=== PATIENT | male | born 1935 | race African-American/Black ===

== ENCOUNTER 2018-03-31 09:29 | Inpatient (IN) | payer OTHER ==
[~2018-03-31] VITALS: Ht 182.9 cm; Wt 77.8 kg
[2018-03-31 10:49] LABS: BASOPHIL % 0.4 % (0-2); PLATELET COUNT 203 x10^3mcL (130-400); RED CELL DISTRIBUTION WIDTH 12.9 % (11.5-14.5)
[2018-03-31 10:52] LABS: CALCIUM 8.8 mg/dL (8.5-10.1); CARBON DIOXIDE 31.3 mmol/L (21-32); CHLORIDE SERUM 105 mmol/L (98-107); CREATININE SERUM 1.7 mg/dL (0.7-1.3); GLUCOSE SERUM 87 mg/dL (74-106); POTASSIUM SERUM 4.2 mmol/L (3.5-5.1); SODIUM SERUM 142 mmol/L (136-145)
[2018-03-31 11:02] LABS: microscopic required? NO
[2018-03-31 11:03] LABS: ALKALINE PHOSPHATASE 103 U/L (46-116); ALT/SGPT 17 U/L (16-63); AMYLASE 59 U/L (25-115); AST/SGOT 19 U/L (15-37); BILIRUBIN TOTAL 0.55 mg/dL (0.20-1.00); CHOLESTEROL 171 mg/dL (<200); HDL CHOLESTEROL 49 mg/dL (40-60); LIPASE 112 IU/L (73-393); MAGNESIUM 2.4 mg/dL (1.8-2.4); T4(THYROXINE) 5.8 ug/dL (4.7-13.3)
[2018-03-31 11:04] LABS: ALBUMIN 3.3 g/dL (3.4-5.0)
[2018-03-31 11:19] LABS: UA SPECIFIC GRAVITY 1.015 (1.005-1.035); urine erythrocyte NEGATIVE (NEGATIVE)
[2018-03-31 11:25] LABS: AMPHETAMINE QUAL UR NONE DETECTED (See below)
[2018-03-31] MEDS ORDERED: TRAVATAN Z5 ML OU (12:46)
[2018-03-31] MEDS ORDERED: NAMENDA10 M2 PO (12:47)
[2018-03-31 13:54] VITALS: BP 184/93
[2018-03-31 15:00] VITALS: BP 145/84
[2018-03-31 15:04] VITALS: Ht 182.9 cm; Wt 77.8 kg
[2018-03-31 21:48] VITALS: BP 162/85
[2018-03-31 23:26] VITALS: BP 126/96
[2018-04-01 05:18] VITALS: BP 120/67
[2018-04-01 06:57] LABS: BASOPHIL % 0.7 % (0-2); PLATELET COUNT 197 x10^3mcL (130-400); RED CELL DISTRIBUTION WIDTH 12.9 % (11.5-14.5)
[2018-04-01 07:21] LABS: CALCIUM 8.8 mg/dL (8.5-10.1); CARBON DIOXIDE 25.3 mmol/L (21-32); CHLORIDE SERUM 107 mmol/L (98-107); CREATININE SERUM 1.6 mg/dL (0.7-1.3); GLUCOSE SERUM 85 mg/dL (74-106); POTASSIUM SERUM 4.2 mmol/L (3.5-5.1); SODIUM SERUM 141 mmol/L (136-145)
[2018-04-01 08:25] VITALS: BP 120/60
[2018-04-01 13:41] VITALS: BP 113/69
[2018-04-01 17:20] VITALS: BP 119/61
[2018-04-02 02:25] VITALS: BP 100/55
[2018-04-02 05:28] LABS: BASOPHIL % 0.5 % (0-2); PLATELET COUNT 190 x10^3mcL (130-400); RED CELL DISTRIBUTION WIDTH 13.4 % (11.5-14.5)
[2018-04-02 05:30] VITALS: BP 112/56
[2018-04-02 05:41] LABS: CARBON DIOXIDE 28.4 mmol/L (21-32); CHLORIDE SERUM 110 mmol/L (98-107); CREATININE SERUM 1.7 mg/dL (0.7-1.3); GLUCOSE SERUM 86 mg/dL (74-106); MAGNESIUM 2.3 mg/dL (1.8-2.4); PHOSPHOROUS 3.1 mg/dL (2.5-4.9); POTASSIUM SERUM 4.3 mmol/L (3.5-5.1); SODIUM SERUM 147 mmol/L (136-145)
[2018-04-02 10:05] VITALS: BP 115/69
[2018-04-02 13:36] VITALS: BP 114/51
[2018-04-02 18:13] VITALS: BP 155/77
[2018-04-02 21:03] VITALS: BP 113/56
[2018-04-03 05:41] VITALS: BP 153/78
[2018-04-03 06:04] LABS: BASOPHIL % 0.5 % (0-2); PLATELET COUNT 213 x10^3mcL (130-400)
[2018-04-03 06:56] LABS: CALCIUM 8.5 mg/dL (8.5-10.1); CARBON DIOXIDE 26.8 mmol/L (21-32); CHLORIDE SERUM 107 mmol/L (98-107); CREATININE SERUM 1.7 mg/dL (0.7-1.3); GLUCOSE SERUM 90 mg/dL (74-106); MAGNESIUM 2.3 mg/dL (1.8-2.4); POTASSIUM SERUM 3.7 mmol/L (3.5-5.1); SODIUM SERUM 142 mmol/L (136-145)
[2018-04-03 08:24] VITALS: BP 152/73
[2018-04-03 13:10] VITALS: BP 140/70
[2018-04-03 17:01] VITALS: BP 145/63
[2018-04-03 20:26] VITALS: BP 142/76
[2018-04-04 05:46] VITALS: BP 154/78
[2018-04-04 10:50] VITALS: BP 117/57
[2018-04-04 14:59] VITALS: BP 128/62
[2018-04-04 20:23] VITALS: BP 148/78
[2018-04-05] VITALS (7 sets, daily range): BP systolic 97–150; BP diastolic 48–77
[2018-04-05 06:55] LABS: BASOPHIL % 0.6 % (0-2); PLATELET COUNT 212 x10^3mcL (130-400); RED CELL DISTRIBUTION WIDTH 12.9 % (11.5-14.5)
[2018-04-05 07:13] LABS: CARBON DIOXIDE 25.6 mmol/L (21-32); CHLORIDE SERUM 107 mmol/L (98-107); CREATININE SERUM 1.7 mg/dL (0.7-1.3); GLUCOSE SERUM 85 mg/dL (74-106); POTASSIUM SERUM 3.9 mmol/L (3.5-5.1); SODIUM SERUM 142 mmol/L (136-145)
[2018-04-06 05:44] VITALS: BP 101/51
[2018-04-06 08:42] VITALS: BP 121/66
[2018-04-06] MEDS ORDERED: XARELTO20 M1 PO (11:08)
[2018-04-06] MEDS ORDERED: XARELTO15 M1 PO (12:11)
[2018-04-06] MEDS ORDERED: ECO81 PO (12:51)
[2018-04-06] MEDS ORDERED: LIPI10 PO (12:51)
[2018-04-06] MEDS ORDERED: METOPROLOL TART25 M1 PO (12:51)
[2018-04-06 13:07] VITALS: BP 129/68
== END 2018-04-06 14:45 | DRG 56 ==
LOC: ED 09:29 → DU 12:39
PROVIDERS: Emergency Medicine; Family Medicine; General Practice
DX: G30.9 Alzheimer's disease, unspecified (principal); N17.0 Acute kidney failure with tubular necrosis; G93.41 Metabolic encephalopathy; F02.80 Dementia in other diseases classified elsewhere, unspecified severity, without behavioral disturbance, psychotic disturbance, mood disturbance, and anxiety; I44.0 Atrioventricular block, first degree; I16.0 Hypertensive urgency; E11.9 Type 2 diabetes mellitus without complications; R13.10 Dysphagia, unspecified; F20.9 Schizophrenia, unspecified; H40.9 Unspecified glaucoma; K76.0 Fatty (change of) liver, not elsewhere classified; D64.9 Anemia, unspecified; M06.9 Rheumatoid arthritis, unspecified; Z68.24 Body mass index [BMI] 24.0-24.9, adult
CPT/HCPCS: 83880; 92526-GN; 92610-GN; 97110-GP; 97116-GP; 97530-GP; G0480; J1644; J7030; Q0092